=== PATIENT | male | born 1965 | race Caucasian/White ===

== ENCOUNTER 2018-12-14 19:12 | Inpatient (IN) | payer BC, OTHER ==
[2018-12-14 20:28] LABS: Absolute Lymphocytes (CBC) 2.6 K/uL (0.7-4.9); Basophils % 0.7 % (0-1.3); Hematocrit 41.4 % (39.6-49.0); MPV 9.4 fL (7.6-11.3); RBC Red Blood Cell Count 4.63 M/uL (4.33-5.43)
[2018-12-14] MEDS ORDERED: FENTANYL CITR 100 MCG/2 ML ONE (20:30)
[2018-12-14] MEDS ORDERED: NA CHLORIDE 0.9% 0 ML ONE (20:31)
[2018-12-14] MEDS ORDERED: NA CHLORIDE 0.9% 1,000 ML ONE (20:31)
[2018-12-14 20:43] LABS: BUN Blood Urea Nitrogen 15 mg/dL (7-18); Bicarbonate 31 mmol/L (21-32); Glucose Level 82 mg/dL (74-106); Sodium Level 141 mmol/L (136-145)
[2018-12-14] MEDS ORDERED: KETOROLAC 30 MG/ML INJ ONE (21:35)
[2018-12-14] MEDS ORDERED: VANCOMYCIN 1 GM/VIAL ONE (23:02)
[2018-12-14] MEDS ORDERED: NA CHLORIDE 0.9% 250 ML ONE (23:02)
[2018-12-14] MEDS ORDERED: PIPER/TAZO/NS 3.375gm 3.375 GM/100 ML BAG ONE (23:02)
--- NOTE | 2018-12-14 23:56 | ER ---
Nurse's Notes [facility] Name: Nick Aguilar Age: 53 yrs Sex: Male : 1965 Arrival Date: 12/14/2018 Time: 19:15 Bed 28 Private MD: Diagnosis: Other infective bursitis, elbow;Pain in right elbow Presentation: 12/14 19:21 Presenting complaint: Patient states: Diagnosed with bursitis to right elbow at [facility], states lanced by doctor and sent home with antibiotics; states pain is worse now, radiating to right hand. Transition of care: patient was not received from another setting of care. Onset of symptoms was December 14, 2018. Risk Assessment: Do you want to hurt yourself or someone else? Patient reports no desire to harm self or others. Initial Sepsis Screen: Does the patient meet any 2 criteria? No. Patient's initial sepsis screen is negative. Does the patient have a suspected source of infection? No. Patient's initial sepsis screen is negative. Care prior to arrival: None. 19:21 Method Of Arrival: Ambulatory 1 19:21 Acuity: BLAYNE 3 lp1 Historical: - Allergies: 19:27 No Known Allergies; lp1 - PMHx: 19:27 Hyperthyroidism; insomnia; Asthma; lp1 - PSHx: 19:27 Foot surgery; lp1 - Immunization history:: Adult Immunizations up to date. - Social history:: Smoking status: Patient uses tobacco products, chewing tobacco. - Ebola Screening: : No symptoms or risks identified at this time. Screenin:00 Abuse screen: Denies threats or abuse. Denies injuries from another. Nutritional wh screening: No deficits noted. Tuberculosis screening: No symptoms or risk factors identified. Fall Risk None identified. Assessment: 20:00 General: Appears in no apparent distress. uncomfortable, Behavior is calm, cooperative, wh appropriate for age. Pain: Complains of pain in Right Elbow Pain does not radiate. Pain currently is 10 out of 10 on a pain scale. Quality of pain is described as aching, Pain began 1 day ago. 20:00 Neuro: Level of Consciousness is awake, alert, obeys commands, Oriented to person, wh place, time, situation, Appropriate for age. Cardiovascular: Capillary refill < 3 seconds. Respiratory: Airway is patent Respiratory effort is even, unlabored, Respiratory pattern is regular, symmetrical. GI: Abdomen is flat, non-distended. : No signs and/or symptoms were reported regarding the genitourinary system. EENT: No signs and/or symptoms were reported regarding the EENT system. Derm: Skin is intact, is healthy with good turgor, Skin is pink, warm \T\ dry. normal, Redness on Right Elbow. Musculoskeletal: Range of motion: limited in right elbow. 21:25 Reassessment: Patient appears in no apparent distress at this time. No changes from previously documented assessment. Patient and/or family updated on plan of care and expected duration. Pain level reassessed. Patient is alert, oriented x 3, equal unlabored respirations, skin warm/dry/pink. 22:45 Reassessment: Patient appears in no apparent distress at this time. No changes from wh previously documented assessment. Patient and/or family updated on plan of care and expected duration. Pain level reassessed. Patient is alert, oriented x 3, equal unlabored respirations, skin warm/dry/pink. Patient states feeling better. 23:30 Reassessment: Patient appears in no apparent distress at this time. No changes from wh previously documented assessment. Patient and/or family updated on plan of care and expected duration. Pain level reassessed. Patient is alert, oriented x 3, equal unlabored respirations, skin warm/dry/pink. 12/15 00:30 Reassessment: Patient appears in no apparent distress at this time. No changes from wh previously documented assessment. Patient and/or family updated on plan of care and expected duration. Pain level reassessed. Patient is alert, oriented x 3, equal unlabored respirations, skin warm/dry/pink. Vital Signs: 12/14 19:25 BP 136 / 82; Pulse 83; Resp 18; Temp 97(O); Pulse Ox 100% on R/A; Weight 54.43 kg (R); lp1 Height 5 ft. 5 in. (165.10 cm); Pain 10/10; 21:00 BP 127 / 79; Pulse 75; Resp 18; Pulse Ox 99% on R/A; wh 22:30 BP 136 / 79; Pulse 82; Resp 18; Pulse Ox 100% on R/A; wh 23:30 BP 136 / 87; Pulse 71; Resp 16; Pulse Ox 100% on R/A; wh 12/15 00:30 BP 124 / 80; Pulse 66; Resp 16; Pulse Ox 99% on R/A; 12/14 19:25 Body Mass Index 19.97 (54.43 kg, 165.10 cm) lp1 ED Course: 12/14 19:15 Patient arrived in ED. cf2 19:23 Triage completed. lp1 19:23 Arm band placed on left wrist. lp1 19:28 Ciera Barrios is Primary Nurse. 19:34 Mason Urban PA is PHCP. cp 19:34 Erick Dawn MD is Attending Physician. cp 20:00 Patient has correct armband on for positive identification. Bed in low position. Call light in reach. Side rails up X 1. Pulse ox on. NIBP on. 20:10 Inserted saline lock: 20 gauge in left antecubital area, using aseptic technique. Blood wh collected. 20:49 XRAY Elbow RIGHT 3 view In Process Unspecified. EDMS 22:54 Elbow Right W Con In Process Unspecified. EDMS 23:53 Tejal Langford MD is Hospitalizing Provider. [facility] 12/15 01:34 No provider procedures requiring assistance completed. Patient admitted, IV remains in place. Administered Medications: 12/14 20:36 Drug: fentaNYL (PF) 25 mcg {Note: RASS0.} Route: IVP; Site: left antecubital; 21:33 Follow up: Response: No adverse reaction; Pain is decreased; RASS: Alert and Calm (0) 20:37 Drug: NS 0.9% 1000 ml Route: IV; Rate: 1 bolus; Site: left antecubital; 12/15 00:35 Follow up: Response: No adverse reaction; IV Status: Completed infusion 12/14 21:40 Drug: TORadol - Ketorolac 15 mg Route: IVP; Site: left antecubital; 22:47 Follow up: Response: No adverse reaction; Pain is decreased 23:05 Drug: Zosyn 3.375 grams Route: IVPB; Infused Over: 60 mins; Site: left antecubital; 12/15 00:35 Follow up: Response: No adverse reaction; IV Status: Completed infusion 00:01 Drug: vancoMYCIN 1 grams Route: IVPB; Infused Over: 2 hrs; Site: left antecubital; jd3 01:33 Follow up: Response: No adverse reaction; IV Status: Completed infusion 00:36 Drug: Motrin 600 mg Route: PO; 01:33 Follow up: Response: No adverse reaction Outcome: 12/14 23:54 Decision to Hospitalize by Provider. [facility] 12/15 01:35 Admitted to Med/surg accompanied by nurse, family with patient, via wheelchair, room wh 230, with chart, Report called to Jenna Carrizales RN Condition: good Instructed on the need for admit. 01:36 Patient left the ED. Signatures: Dispatcher [employer] EDMS Erick Dawn MD MD kdr Nidhi Shipley RN RN lp1 Mason Urban PA PA cp Habalo, Winsy Matti Nichols RN RN jd3 Bailey Leblanc cf2 Corrections: (The following items were deleted from the chart) 12/14 22:44 20:00 Pain: Complains of pain in Right Elbow Pain does not radiate. Pain currently is wh 10 out of 10 on a pain scale. Quality of pain is described as aching, Pain began 1 day ago. :45 22:43 Neuro: Level of Consciousness is awake, alert, obeys commands, Oriented to person, place, time, situation, Appropriate for age :45 22:43 Cardiovascular: Capillary refill < 3 seconds [facility] :45 22:43 Respiratory: Airway is patent Respiratory effort is even, unlabored, Respiratory wh pattern is regular, symmetrical, :45 22:43 GI: Abdomen is flat, non-distended, [facility] :45 22:43 : No signs and/or symptoms were reported regarding the genitourinary system. [facility] :45 22:43 EENT: No signs and/or symptoms were reported regarding the EENT system. [facility] :45 22:43 Derm: Skin is intact, is healthy with good turgor, Skin is pink, warm \T\ dry. wh normal, Redness on Right Elbow :45 22:43 Musculoskeletal: Range of motion: limited in right elbow [facility] 22:46 21:05 Reassessment: Patient appears in no apparent distress at this time. No changes from previously documented assessment. Patient is alert, oriented x 3, equal unlabored respirations, skin warm/dry/pink. wh
--- NOTE | 2018-12-14 23:57 | EDPHYS ---
Physician Documentation [facility] Name: Nick Aguilar Age: 53 yrs Sex: Male : 1965 Arrival Date: 12/14/2018 Time: 19:15 Bed 28 Private MD: ED Physician Erick Dawn HPI: 12/14 19:55 This 53 yrs old Male presents to ER via Ambulatory with complaints of elbow cp pain. 19:55 The patient or guardian complains of pain, that is acute, swelling, tenderness. The cp complaints affect the right elbow radiating to right forearm. Patient reports having right elbow bursa drained yesterday by DR Tsai \T[facility] with bursa packed. Patient was prescribed oral Doxycycline which he has been taking. Patient reports pain worse today and now radiating down arm. Historical: - Allergies: 19:27 No Known Allergies; lp1 - PMHx: 19:27 Hyperthyroidism; insomnia; Asthma; lp1 - PSHx: 19:27 Foot surgery; lp1 - Immunization history:: Adult Immunizations up to date. - Social history:: Smoking status: Patient uses tobacco products, chewing tobacco. - Ebola Screening: : No symptoms or risks identified at this time. ROS: 20:00 Constitutional: Negative for body aches, chills, fever, poor PO intake. cp 20:00 Neck: Negative for pain with movement, pain at rest, stiffness. cp 20:00 Cardiovascular: Negative for chest pain, palpitations. 20:00 Respiratory: Negative for cough, shortness of breath, wheezing. 20:00 Abdomen/GI: Negative for abdominal pain, nausea and vomiting, constipation. 20:00 Back: Negative for pain at rest, pain with movement. 20:00 MS/extremity: Positive for pain, swelling, tenderness, warmth, of the right elbow. 20:00 All other systems are negative. Exam: 20:10 Constitutional: The patient appears in no acute distress, alert, awake, cp non-diaphoretic, non-toxic, well developed, well nourished, uncomfortable. 20:10 Head/Face: Normocephalic, atraumatic. cp 20:10 Eyes: Periorbital structures: appear normal, Conjunctiva: normal, no exudate, no injection, Sclera: no appreciated abnormality, Lids and lashes: appear normal, bilaterally. 20:10 ENT: External ear(s): are unremarkable, Nose: is normal, Mouth: Lips: normal, moist, Oral mucosa: pink and intact, moist, Posterior pharynx: is normal, airway is patent, no erythema, no exudate. 20:10 Chest/axilla: Inspection: normal. 20:10 Cardiovascular: Rate: normal, Rhythm: regular. 20:10 Respiratory: the patient does not display signs of respiratory distress, Respirations: normal, no use of accessory muscles, no retractions, no splinting, no tachypnea, labored breathing, is not present, Breath sounds: are clear throughout, no decreased breath sounds, no stridor, no wheezing. 20:10 Abdomen/GI: Exam negative for discomfort, distension, guarding, Inspection: abdomen appears normal. 20:10 Skin: cellulitis, that is moderate, patchy, on the right elbow, noted open wound with packing in place posterior right elbow. Vital Signs: 19:25 BP 136 / 82; Pulse 83; Resp 18; Temp 97(O); Pulse Ox 100% on R/A; Weight 54.43 kg (R); lp1 Height 5 ft. 5 in. (165.10 cm); Pain 10/10; 21:00 BP 127 / 79; Pulse 75; Resp 18; Pulse Ox 99% on R/A; wh 22:30 BP 136 / 79; Pulse 82; Resp 18; Pulse Ox 100% on R/A; wh 23:30 BP 136 / 87; Pulse 71; Resp 16; Pulse Ox 100% on R/A; wh 12/15 00:30 BP 124 / 80; Pulse 66; Resp 16; Pulse Ox 99% on R/A; wh 12/14 19:25 Body Mass Index 19.97 (54.43 kg, 165.10 cm) lp1 MDM: 12/14 19:36 Patient medically screened. cp 22:05 Physician consultation: Tejal Langford MD was called at 22:05, was contacted at 22:05, cp regarding admission, to the medical/surgical unit. would like further tests performed, CT scan. 22:05 Data reviewed: vital signs, nurses notes, lab test result(s), radiologic studies, plain cp films. Test interpretation: by ED physician or midlevel provider: xrays of elbow negative for foreign body. Response to treatment: the patient's symptoms have markedly improved after treatment. 12/14 19:52 Order name: CBC with Diff; Complete Time: 21:10 12/14 19:52 Order name: BMP; Complete Time: 21:10 12/14 21:10 Interpretation: Normal except: CA 8.4. 12/14 19:52 Order name: Procalcitonin; Complete Time: 21:10 12/14 19:52 Order name: Lactate; Complete Time: 21:10 12/14 19:53 Order name: Blood Culture Adult (2) 12/14 20:30 Order name: XRAY Elbow RIGHT 3 view 12/14 19:52 Order name: IV; Complete Time: 20:10 12/14 22:29 Order name: Elbow Right W Con EDMS Administered Medications: 20:36 Drug: fentaNYL (PF) 25 mcg {Note: RASS0.} Route: IVP; Site: left antecubital; 21:33 Follow up: Response: No adverse reaction; Pain is decreased; RASS: Alert and Calm (0) 20:37 Drug: NS 0.9% 1000 ml Route: IV; Rate: 1 bolus; Site: left antecubital; 12/15 00:35 Follow up: Response: No adverse reaction; IV Status: Completed infusion 12/14 21:40 Drug: TORadol - Ketorolac 15 mg Route: IVP; Site: left antecubital; 22:47 Follow up: Response: No adverse reaction; Pain is decreased 23:05 Drug: Zosyn 3.375 grams Route: IVPB; Infused Over: 60 mins; Site: left antecubital; 12/15 00:35 Follow up: Response: No adverse reaction; IV Status: Completed infusion 00:01 Drug: vancoMYCIN 1 grams Route: IVPB; Infused Over: 2 hrs; Site: left antecubital; jd3 01:33 Follow up: Response: No adverse reaction; IV Status: Completed infusion 00:36 Drug: Motrin 600 mg Route: PO; 01:33 Follow up: Response: No adverse reaction Disposition: 12/14 23:52 Co-signature as Attending Physician, Erick Dawn MD I agree with the assessment and kdr plan of care. Disposition: 12/14/18 23:54 Hospitalization ordered by Tejal Langford for Observation. Preliminary diagnosis are Other infective bursitis, elbow, Pain in right elbow. - Bed requested for Telemetry/MedSurg (observation). - Status is Observation. - Condition is Fair. - Problem is new. - Symptoms have improved. UTI on Admission? No Signatures: Dispatcher [employer] EDMS Erick Dawn MD MD [facility] Nidhi Shipley RN RN lp1 Mason Urban PA PA cp Garcia, Cindy, RN RN Ciera Barrios Matti Nichols RN RN jd3 Corrections: (The following items were deleted from the chart) 21:10 21:10 Normal except. cp cp 23:55 23:54 Hospitalization Ordered by Tejal Langford MD for Observation. Preliminary [facility] diagnosis is Other infective bursitis, elbow. Bed requested for Telemetry/MedSurg (observation). Status is Observation. Condition is Fair. Problem is new. Symptoms have improved. UTI on Admission? No. kdr 12/15 00:17 12/14 23:55 12/14/2018 23:54 Hospitalization Ordered by Tejal Langford MD for cg Observation. Preliminary diagnosis is Other infective bursitis, elbow; Pain in right elbow. Bed requested for Telemetry/MedSurg (observation). Status is Observation. Condition is Fair. Problem is new. Symptoms have improved. UTI on Admission? No. [facility] 12/15 01:36 00:17 12/14/2018 23:54 Hospitalization Ordered by Tejal Langford MD for Observation. Preliminary diagnosis is Other infective bursitis, elbow; Pain in right elbow. Bed requested for Telemetry/MedSurg (observation). Status is Observation. Condition is Fair. Problem is new. Symptoms have improved. UTI on Admission? No.
[2018-12-14] MEDS ORDERED: ONDANSETRON 4 MG/2 ML VIAL IV PRN (23:59)
[2018-12-14] MEDS ORDERED: ACETAMINOPHEN 500 MG TAB PO PRN (23:59)
[2018-12-15] MEDS ORDERED: IBUPROFEN 200 MG TAB PO ONE (00:12)
[2018-12-15] MEDS ORDERED: IBUPROFEN 400 MG TAB ONE (00:12)
[2018-12-15 02:22] VITALS: BMI 20.2
[2018-12-15] MEDS: NA CHLORIDE 0.9% 1,000 ML IV SCH ×4 (02:27→19:45)
[2018-12-15] MEDS: Levofloxacin500mg IV 500 MG/100 ML BAG IV SCH (02:31)
[2018-12-15] MEDS ORDERED: VANCOMYCIN/NS 1 gm 1 GM/250 ML BAG IVPB SCH ×2 (04:30→17:00)
[2018-12-15 06:18] LABS: Protime INR 1.06
[2018-12-15 06:29] LABS: BUN Blood Urea Nitrogen 10 mg/dL (7-18); Bicarbonate 27 mmol/L (21-32); Glucose Level 92 mg/dL (74-106); Potassium 3.8 mmol/L (3.5-5.1); Sodium Level 145 mmol/L (136-145)
[2018-12-15 06:31] LABS: Absolute Lymphocytes (CBC) 2.8 K/uL (0.7-4.9); Basophils % 0.4 % (0-1.3); Hematocrit 33.6 % (39.6-49.0); MPV 9.6 fL (7.6-11.3); RBC Red Blood Cell Count 3.79 M/uL (4.33-5.43)
--- NOTE | 2018-12-15 07:36 | P.HP ---
Certification for Inpatient Patient admitted to: Inpatient With expected LOS: >2 Midnights Patient will require the following post-hospital care: None Practitioner: I am a practitioner with admitting privileges, knowledge of patient current condition, hospital course, and medical plan of care. Services: Services provided to patient in accordance with Admission requirements found in Title 42 Section 412.3 of the Code of Federal Regulations Patient History Date of Service: 12/15/18 Reason for admission: Cellulitis of the left elbow was concern for septic arthritis/bursitis History of Present Illness: Patient is a 53-year-old gentleman came into the hospital because he was having pain in his left arm. He had gone to see his primary care provider Dr. Darrel Person who did an incision and debridement of his left elbow in his office. He apparently had a lot of purulent drainage come out. He was sent home on oral antibiotics which he has not been improving from. He decided to come into the ER for further evaluation. In the ER there was concern for a septic joint. CT scan does not reveal any signs of a loculated fluid in the joint. No significant joint effusion noted. Patient will be admitted to the hospital for further evaluation. Allergies No Known Allergies Allergy (Unverified 12/14/18 22:11) Home Medications: NK [No Home Meds] 12/15/18 - Past Medical/Surgical History Has patient received pneumonia vaccine in the past: No Diabetic: No -: HYperthyroidism -: insomnia -: ashma -: internal fixator left foot and ankle - Family History Father Medical History: Heart disease - Social History Smoking Status: Never smoker Alcohol use: No CD- Drugs: No Caffeine use: No Place of Residence: Home Review of Systems 10-point ROS is otherwise unremarkable Physical Examination - Vital Signs Temperature: 97.2 F Blood Pressure: 122/68 Pulse: 61 Respirations: 18 Pulse Ox (%): 99 - Physical Exam General: Alert, In no apparent distress, Oriented x3 HEENT: Atraumatic, PERRLA, Mucous membr. moist/pink, EOMI, Sclerae nonicteric Neck: Supple, 2+ carotid pulse no bruit, No LAD, Without JVD or thyroid abnormality Respiratory: Clear to auscultation bilaterally, Normal air movement Cardiovascular: Regular rate/rhythm, Normal S1 S2, No murmurs Gastrointestinal: Normal bowel sounds, Soft and benign, Non-distended, No tenderness Musculoskeletal: Swelling, Erythema, Tenderness Integumentary: No rashes Neurological: Normal gait, Normal speech, Normal strength at 5/5 x4 extr, Normal tone, Sensation intact, Cranial nerves 3-12 intact, Normal affect Lymphatics: No axilla or inguinal lymphadenopathy - Studies Laboratory Data (last 24 hrs) 12/14/18 20:15: Sodium 141, Potassium 4.0, BUN 15, Creatinine 0.85, Glucose 82 12/14/18 20:15: WBC 10.2, Hgb 13.8, Hct 41.4, Plt Count 172 Assessment & Plan - Problems (Diagnosis) (1) Cellulitis of left upper extremity Current Visit: Yes Status: Acute - Plan 1. Continue with IV antibiotic 2. Continue with local wound care 3. Wound care consultation/surgical consultation 4. Gentle IV hydration 5. Monitor CBC 6. Strict blood sugar monitoring 7. Pain control 8. GI and DVT prophylaxis Discharge Plan: Home Plan to discharge in: 48 Hours - Advance Directives Does patient have a Living Will: Yes Does patient have a Durable POA for Healthcare: Yes - Code Status/Comfort Care Code Status Assessed: Yes Code Status: Full Code Critical Care: No Time Spent Managing PTS Care (In Minutes): 45
--- NOTE | 2018-12-15 07:57 | RAD REPORT ---
EXAM DESCRIPTION: RAD - Elbow Right 3 View - 12/14/2018 8:50 pm CLINICAL HISTORY: Right arm pain and numbness, recent drainage of posterior elbow bursitis COMPARISON: None. FINDINGS: No fracture is identified and no elevated posterior fat pad. There is no dislocation or pe riosteal reaction noted. No foreign body in the soft tissues. Soft tissue air is present posterior to the olecranon. This is not abnormal for the procedure performed. No other significant finding. IMPRESSION: No bone or joint abnormality. Small air collection at site of bursitis drainage. This is not unexpected.
[2018-12-15 09:49] LABS: Blood Morphology Comment NOT SEEN (NOT SEEN); Platelet Estimate ADEQ; Urine White Blood Cell Casts OK
--- NOTE | 2018-12-15 10:03 | RAD REPORT ---
EXAM DESCRIPTION: CT - Elbow Right W Con - 12/15/2018 3:17 am CLINICAL HISTORY: Pain COMPARISON: None. TECHNIQUE: CT ELBOW WITH IV CONTRAST on 12/14/2018 10:13 PM CDT This exam was performed according to our departmental dose-optimization program, which includes autom ated exposure control, adjustment of the mA and/or kV according to patient size and/or use of iterati ve reconstruction technique. There is small amount of subcutaneous air within the left antecubital fo ssa. FINDINGS: There are no acute osseous findings. No suspicious bony lesions. IMPRESSION: No DVT. No definite acute fracture. Electronically signed by: Maurizio Condon MD 12/14/2018 11:19 PM CDT Due to temporary technical issues with the PACS/Fluency reporting system, reports are being signed by the in house radiologist as a courtesy to ensure prompt reporting. The interpreting radiologist is f ully responsible for the content of the report.
[2018-12-15] MEDS: MORPHINE 4 MG/ML SYR IV PRN ×3 (10:16→21:30)
[2018-12-15] MEDS ORDERED: ALBUTEROL 2.5 MG/3 ML NEB SOL NEB PRN ×2 (10:26→15:00)
--- NOTE | 2018-12-15 11:51 | PN ---
Date of Progress Note: 12/15/2018 Subjective: Patient is seen and examined. Chart reviewed and case discussed with RN. The patient still complains of significant amount of pain. The patient has some swelling of his right elbow. Medications List: Reviewed. Physical Examination: Vital Signs: Temperature 97.4, respirations 20. O2 at 100% on room air. General: Awake, alert, oriented x3, in some mild distress due to pain. CV: S1, S2. Regular rate and rhythm. Peripheral pulses present. Respiratory: Moving air well bilaterally. No wheezing or stridor. No use of accessory muscles. Gastrointestinal: Abdomen is soft, nontender, nondistended. Positive bowel sounds. Extremities: No clubbing, cyanosis. The patient has edema of the right elbow. Neurologic: Nonfocal. Sensation intact to light touch. Strength is symmetric , bilateral upper and lower extremities. Skin: Right elbow erythema, tenderness to palpation. Warm to touch. No fluctuance. The patient also has incision site from previous lancing. No discharge. Laboratory Data: Sodium 145, potassium 3.8, chloride 112, CO2 of 27, BUN 10, creatinine 0.67, glucose 92, calcium 7.8. Procalcitonin less than 0.05. WBC 7.9, H and H 11.5 and 33.6, platelets 152, neutrophils 54%. Blood cultures and wound cultures are pending. Assessment And Plan: 1. A 53-year-old male with septic olecranon bursitis right elbow. We will continue with IV antibiotics. Follow up on cultures. Continue IV fluids. Dr. Alcantara with Orthopedics has been consulted. Patient may need debridement, failed outpatient treatment. The patient was on oral antibiotics at home. 2. Hyperthyroidism. Patient does not take any medications at home. 3. History of insomnia. 4. Intermittent asthma, will use albuterol p.r.n. 5. DVT prophylaxis. No chemical anticoagulation due to anticipated procedure. Plan: Discharge in the next 48 to 72 hours depending on clinical response and culture results. SHELLY Voice ID: [id number] Report ID: [id number] DENISSE
[2018-12-15] MEDS: VANCOMYCIN/NS 1 gm 1 GM/250 ML BAG IVPB SCH ×2 (12:05→22:04)
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
[2018-12-16] MEDS: Levofloxacin500mg IV 500 MG/100 ML BAG IV SCH ×2 (01:07→22:11)
[2018-12-16] MEDS: MORPHINE 4 MG/ML SYR IV PRN ×2 (04:48→08:52)
[2018-12-16] MEDS: NA CHLORIDE 0.9% 1,000 ML IV SCH ×4 (05:45→18:06)
[2018-12-16 05:54] LABS: Absolute Lymphocytes (CBC) 2.7 K/uL (0.7-4.9); Basophils % 0.6 % (0-1.3); Hematocrit 35.6 % (39.6-49.0); Lymphocytes % 33.1 % (15.3-44.8); MPV 9.5 fL (7.6-11.3); RBC Red Blood Cell Count 3.98 M/uL (4.33-5.43)
[2018-12-16 06:13] LABS: ALT/SGPT 25 U/L (12-78); AST/SGOT 17 U/L (15-37); Alkaline Phosphatase 92 U/L (45-117); BUN Blood Urea Nitrogen 11 mg/dL (7-18); Bicarbonate 28 mmol/L (21-32); Bilirubin Total 0.3 mg/dL (0.2-1.0); Glucose Level 94 mg/dL (74-106); Potassium 4.2 mmol/L (3.5-5.1); Protein, Total 6.1 g/dL (6.4-8.2); Sodium Level 144 mmol/L (136-145)
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
[2018-12-16] MEDS: VANCOMYCIN/NS 1 gm 1 GM/250 ML BAG IVPB SCH ×2 (11:21→22:11)
--- NOTE | 2018-12-16 11:42 | PN ---
Date of Progress Note: 12/16/2018 Subjective: Patient seen and examined. Chart reviewed and case discussed with RN, sister at the bedside. Treatment plan explained, all questions answered. The patient states his erythema is improved, remained afebrile overnight. Medications: List reviewed. Physical Examination: Vital Signs: Temperature 98.4, heart rate 74, blood pressure 124/73, respirations 18, O2 at 97% on room air. General: Awake, alert, oriented x3, not in any acute distress, slightly ill- appearing male. CV: S1, S2. Regular rate and rhythm. Peripheral pulses present. Respiratory: Moving air well bilaterally. No wheezing or stridor. Gastrointestinal: Abdomen is soft, nontender, nondistended. Positive bowel sounds. No guarding or rigidity. Extremities: No clubbing, cyanosis. The patient has mild edema of the right upper extremity. Neuro: Cranial nerves 2 through 12 intact grossly. No focal neurological deficit. Speech is normal. Sensation intact to light touch. Skin: Right elbow incision site clean, dry, intact from previous lancing. Slight erythema around the elbow with tenderness to palpation. Musculoskeletal : Full range of motion of the elbow. Does have some pain with extension. Laboratory Data: Sodium 144, potassium 4.2, chloride 109, CO2 of 28, BUN 11, creatinine 0.68, glucose 94, calcium 8.1. WBC 8.2, H and H 11.8 and 35.6, platelets 164, neutrophils 56%. Blood cultures, no growth to date. Wound culture from the right elbow still pending. Assessment And Plan: A 53-year-old male with: 1. Septic olecranon bursitis right elbow. Continue with IV antibiotics. Cultures are negative to date. Appreciate Dr. Alcantara's input. May need debridement. The patient failed outpatient treatment at home. 2. Right upper extremity cellulitis wound cultures negative to date. Continue IV antibiotics. 3. Hyperthyroidism, stable. We will check TSH level. 4. History of insomnia. 5. Intermittent asthma. We will continue albuterol p.r.n. 6. Deep venous thrombosis prophylaxis with SCDs. No chemical anticoagulation due to possible procedure. Plan: Continue IV antibiotics. Follow up on cultures, likely discharge in the next 24 to 48 hours depending on clinical response. SHELLY Voice ID: [id number] Report ID: [id number] MTDD
[2018-12-16] MEDS: HYDROCODONE/APAP 7.5/325 MG TAB PO PRN (16:14)
[2018-12-16] MEDS ORDERED: KETOROLAC 30 MG/ML INJ IV ONE (18:24)
[2018-12-17] MEDS: HYDROCODONE/APAP 7.5/325 MG TAB PO PRN ×2 (03:58→13:02)
[2018-12-17 05:46] LABS: Absolute Lymphocytes (CBC) 3.1 K/uL (0.7-4.9); Basophils % 0.5 % (0-1.3); Hematocrit 36.8 % (39.6-49.0); Lymphocytes % 45.9 % (15.3-44.8); MPV 9.5 fL (7.6-11.3); RBC Red Blood Cell Count 4.17 M/uL (4.33-5.43)
[2018-12-17] MEDS: NA CHLORIDE 0.9% 1,000 ML IV SCH ×3 (05:59→17:16)
[2018-12-17 06:06] LABS: ALT/SGPT 34 U/L (12-78); AST/SGOT 27 U/L (15-37); Albumin 3.1 g/dL (3.4-5.0); Alkaline Phosphatase 111 U/L (45-117); BUN Blood Urea Nitrogen 12 mg/dL (7-18); Bicarbonate 28 mmol/L (21-32); Bilirubin Total 0.3 mg/dL (0.2-1.0); Glucose Level 95 mg/dL (74-106); Potassium 4.3 mmol/L (3.5-5.1); Protein, Total 6.4 g/dL (6.4-8.2); Sodium Level 143 mmol/L (136-145)
[2018-12-17] MEDS: VANCOMYCIN/NS 1 gm 1 GM/250 ML BAG IVPB SCH ×2 (11:29→23:06)
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
--- NOTE | 2018-12-17 16:32 | PN ---
Date of Progress Note: 12/17/2018 Subjective: Patient is seen and examined. Chart reviewed and case discussed with RN and Dr. Alcantara. Patient yesterday was asking for more pain. I suspect pain seeking behavior in this patient. Treatment plan explained, all questions answered. Medications: List reviewed. Physical Examination: Vital Signs: Temperature 98.2, heart rate 65, blood pressure 119/72, respirations 20, O2 of 96% on room air. General: Awake, alert, oriented x3, not in any acute distress. CV: S1, S2. Regular rate and rhythm. Peripheral pulses present. Respiratory: Moving air well bilaterally. No wheezing or stridor. No use of accessory muscles. Gastrointestinal: Abdomen is soft, nontender, nondistended. Positive bowel sounds. No guarding or rigidity. Extremities: No clubbing, cyanosis, or edema. Neurologic: Cranial nerves 2 through 12 intact grossly. No focal neurological deficits. Sensation intact to light touch. Vascular: Radial pulses present bilaterally. Skin: Right upper extremity erythema with some warmth to touch. Minimal tenderness. Incision site clean, dry, intact. No drainage. Musculoskeletal: Patient's passive range of motion, able to extend elbow 0 degrees with minimal pain. Laboratory Data: Sodium 143, potassium 4.3, chloride 109, CO2 of 28, BUN 12, creatinine 0.79, glucose 95, calcium 8.4. Albumin 3.1. WBC 6.7, H and H 12.4 and 36.8, platelets 169, neutrophils 42%. Assessment: A 53-year-old male with: 1. Right olecranon bursitis with cellulitis. We will continue with IV antibiotics. Wound cultures are positive for methicillin-resistant Staphylococcus aureus. Patient has had methicillin-resistant Staphylococcus aureus infection previously and lost his distal phalanx of the right hand. We will obtain Infectious Disease consultation. Patient will likely need 2 weeks of IV antibiotics. We will obtain MRI of the elbow to rule out involvement of the joint per Dr. Alcantara's recommendation. 2. Failed outpatient treatment. Patient was on doxycycline. 3. Cellulitis of the right upper extremity. 4. Hyperthyroidism stable. 5. History of insomnia. 6. Intermittent asthma. We will continue albuterol p.r.n. 7. Deep venous thrombosis prophylaxis with SCDs. We will start on Lovenox. Plan: As above likely discharge in the next 24 to 48 hours once MRI is complete and IV antibiotics have been set up. SHELLY Voice ID: [id number] Report ID: [id number] DENISSE
[2018-12-17] MEDS: ENOXAPARIN 40 MG/0.4 ML SQ SCH (17:15)
[2018-12-18] MEDS: HYDROCODONE/APAP 7.5/325 MG TAB PO PRN ×3 (00:42→22:22)
[2018-12-18] MEDS: NA CHLORIDE 0.9% 1,000 ML IV SCH ×2 (01:20→14:40)
[2018-12-18] MEDS: Levofloxacin500mg IV 500 MG/100 ML BAG IV SCH (01:46)
[2018-12-18 06:38] LABS: Absolute Lymphocytes (CBC) 3.3 K/uL (0.7-4.9); Basophils % 0.5 % (0-1.3); Hematocrit 35.3 % (39.6-49.0); MPV 9.5 fL (7.6-11.3); RBC Red Blood Cell Count 4.03 M/uL (4.33-5.43)
[2018-12-18 07:01] LABS: ALT/SGPT 33 U/L (12-78); AST/SGOT 24 U/L (15-37); Albumin 3.1 g/dL (3.4-5.0); Alkaline Phosphatase 100 U/L (45-117); BUN Blood Urea Nitrogen 14 mg/dL (7-18); Bicarbonate 30 mmol/L (21-32); Bilirubin Total 0.3 mg/dL (0.2-1.0); Glucose Level 92 mg/dL (74-106); Potassium 4.2 mmol/L (3.5-5.1); Protein, Total 6.4 g/dL (6.4-8.2); Sodium Level 142 mmol/L (136-145)
[2018-12-18] MEDS ORDERED: SODIUM CHLORIDE 0.9% 10ML INJ IV PRN ×2 (08:00)
[2018-12-18] MEDS: SODIUM CHLORIDE 0.9% 10ML INJ IV SCH ×2 (09:00→21:06)
--- NOTE | 2018-12-18 11:20 | RAD REPORT ---
EXAM DESCRIPTION: MRI - Elbow Right Wo Cont - 12/18/2018 10:45 am CLINICAL HISTORY: right olecranon bursa infection, r/out elbow jointelbow pain COMPARISON: Right elbow films December 14, CT right elbow December 14 TECHNIQUE: Multiplanar imaging of the right elbow performed using T1 weighted, proton density, T2 fa t saturation and T2 stir sequencing. FINDINGS: Normal signal characteristics of the bony structures. The no elbow joint effusion seen. In the fatty tissues posterior to the olecranon edema signal is present. Small foci of air present from prior interventional procedure. There is no abscess or drainable fluid collection. The fatty tissues along the posterior aspect of the elbow joint are edematous. The olecranon bursa is seen as a very s mall structure with only a trace amount of fluid present. IMPRESSION: Air and a trace amount of fluid are present in the small defined margins of the olecrano n bursa. Edematous appearance to the fatty tissues posterior to the elbow joint with no other site of fluid or abscess. No bone or muscle abnormality. Note joint effusion or intra-articular abnormalities.
[2018-12-18] MEDS: VANCOMYCIN/NS 1 gm 1 GM/250 ML BAG IVPB SCH ×2 (12:00→22:16)
--- NOTE | 2018-12-18 17:06 | PN ---
Date of Progress Note: 12/18/2018 Subjective: Patient seen and examined. Chart reviewed and case discussed with RN. Patient states josse house bumped his elbow on the tray, is having some pain, otherwise doing well. Has already gone down for his MRI, report is pending. Patient received his PICC line last night. Medications: List reviewed. Physical Examination: Vital Signs: Temperature 97.4, heart rate 70, blood pressure 111/70, respirations 16, O2 99% on room air. General: Awake, alert, oriented x3. Some mild distress due to pain. CV: S1, S2. Regular rate and rhythm. Peripheral pulses present. Respiratory: Moving air well bilaterally. No wheezing or stridor. No use of accessory muscles. Gastrointestinal: Abdomen is soft, nontender, nondistended. Positive bowel sounds. No guarding or rigidity. Extremities: No clubbing, cyanosis, edema. Neurologic: Nonfocal. Sensation intact to light touch. Vascular: Peripheral pulses, radial pulses are present bilaterally. Skin: Patient has erythema of the right elbow. Incision site clean, dry, intact. Mild tenderness t o palpation. Warm to touch. Musculoskeletal: Decreased range of motion in right elbow, however, with passive range of motion. Josse house is able to extend his elbow completely. Does have some pain. Laboratory Data: Sodium 142, potassium 4.2, chloride 108, CO2 30, BUN 14, creatinine 0.72, glucose 9 2, calcium 8.4. WBC 7.1, H and H 12.5 and 35.3, platelets 175, neutrophils 43%. Wound cultures grow ing out MRSA. MRI of the elbow shows air and trace amount of fluid are present in the small defined margin of the olecranon bursa. Edematous appearance of the fatty tissues posterior to the elbow join t with no other site of fluid or abscess. No bone or muscle abnormality. No joint effusion or intra -articular abnormalities. Assessment And Plan: A 53-year-old male with; 1.Right olecranon bursitis with cellulitis. Continue IV antibiotics. Wound cultures positive for m ethicillin-resistant Staphylococcus aureus. MRI of the elbow does not show any joint involvement. Uziel house will discuss further with Dr. Alcantara. Infectious Disease consultation is pending. Patient has demetrice howe received his PICC line. He will need IV antibiotics for a minimum of 2 weeks. Outpatient treat ment with doxycycline. 2.Cellulitis, right upper extremity, improving. 3.Hyperthyroidism. Stable. 4.History of insomnia, stable. 5.Intermittent asthma. Continue albuterol p.r.n. 6.Deep venous thrombosis prophylaxis with sequential compression devices and Lovenox. Plan: Discharge to LTAC versus SNF for long-term IV antibiotics. Patient has been referred to [facility]. SHELLY Voice ID: [id number] Report ID: [id number]
[2018-12-18] MEDS: ENOXAPARIN 40 MG/0.4 ML SQ SCH (17:54)
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
--- NOTE | 2018-12-18 20:21 | P.PN ---
Date of Service: 12/18/18 (HOSP DAY#4) S: PATIENT COMFORTABLE THIS AFTERNOON; PAIN CHART 0,5,3,2,05/21. PATIENT HAS BEEN USING PAIN TABLETS APPROPRIATELY. O: VSS, AFEBRILE, PATIENT TOLERATES COMPLETE ACTIVE EXTENSION AND FLEXION OF THE RIGHT ELBOW. LESS SWELLING, TENDERNESS AND ERYTHEMIA OVER PRIOR I&D SITE NOW HEALED WITHOUT DRAINAGE. NV EXAM INTACT. A: NO SURGERY INDICATED. ID CONSULT TO DECIDE DURATION OF IV ABX. MRI has shown absence of any other site of fluid accumulation or abscess. There is no joint effusion or intra-articular abnormality noted. P: WILL CONTINUE TO FOLLOW PATIENTS PROGRESS WHILE HOSPITALIZED.
[2018-12-18 22:44] VITALS: O2SAT 96
[2018-12-19] MEDS: Levofloxacin500mg IV 500 MG/100 ML BAG IV SCH (00:05)
[2018-12-19] MEDS: NA CHLORIDE 0.9% 1,000 ML IV SCH (04:00)
[2018-12-19 06:05] LABS: ALT/SGPT 34 U/L (12-78); AST/SGOT 28 U/L (15-37); Albumin 3.1 g/dL (3.4-5.0); Alkaline Phosphatase 104 U/L (45-117); BUN Blood Urea Nitrogen 13 mg/dL (7-18); Bicarbonate 32 mmol/L (21-32); Bilirubin Total 0.3 mg/dL (0.2-1.0); Glucose Level 91 mg/dL (74-106); Potassium 4.6 mmol/L (3.5-5.1); Protein, Total 6.2 g/dL (6.4-8.2); Sodium Level 142 mmol/L (136-145)
[2018-12-19] MEDS: SODIUM CHLORIDE 0.9% 10ML INJ IV SCH (09:00)
[2018-12-19] MEDS: VANCOMYCIN/NS 1 gm 1 GM/250 ML BAG IVPB SCH (12:10)
[2018-12-19] MEDS: HYDROCODONE/APAP 7.5/325 MG TAB PO PRN (12:23)
--- NOTE | 2018-12-19 12:26 | RAD REPORT ---
EXAM DESCRIPTION: XR Chest Single View CLINICAL HISTORY: 53 years Male S/P PICC insertion TECHNIQUE: One view of the chest. COMPARISON: No prior exams provided for comparison. FINDINGS: Left-sided PICC line in place with its tip projecting over the distal SVC. The lungs are clear without focal consolidation, effusion, or pneumothorax. The cardiomediastinal s ilhouette and central pulmonary vasculature are normal. No acute osseous abnormalities. IMPRESSION: Left PICC line in good position. No acute cardiopulmonary abnormalities. Electronically signed by: Jemma Mijares MD 12/18/2018 1:29 AM CDT Due to temporary technical issues with the PACS/Fluency reporting system, reports are being signed by the in house radiologist as a courtesy to ensure prompt reporting. The interpreting radiologist is f ully responsible for the content of the report.
--- NOTE | 2018-12-19 12:59 | P.PN ---
Subjective Date of Service: 12/19/18 Chief Complaint: Cellulitis of the left elbow is concern for septic arthritis/ bursitis Patient seen and examined at bedside. No family at bedside. Chart reviewed and case discussed with nursing staff.. Reports improvement of pain in the elbow No other concerns or complaints this morning No acute events noted overnight Review of Systems 10-point ROS is otherwise unremarkable Physical Examination - Vital Signs Temperature: 97.7 F Blood Pressure: 109/63 Pulse: 59 Respirations: 16 Pulse Ox (%): 98 - Physical Exam General: Alert, In no apparent distress HEENT: Atraumatic, PERRLA, EOMI Neck: Supple, JVD not distended Respiratory: Clear to auscultation bilaterally, Normal air movement Cardiovascular: Regular rate/rhythm, Normal S1 S2 Gastrointestinal: Normal bowel sounds, No tenderness Musculoskeletal: No tenderness Integumentary: No rashes Neurological: Normal speech, Normal tone, Normal affect Lymphatics: No axilla or inguinal lymphadenopathy Assessment And Plan - Plan A 53-year-old male with: 1. Right olecranon bursitis with cellulitis. Continue IV antibiotics. Wound cultures positive for methicillin-resistant Staphylococcus aureus. MRI of the elbow does not show any joint involvement. We will discuss further with Dr. Alcantara. Infectious Disease consultation. Patient has already received his PICC line. He will need IV antibiotics for a minimum of 2 weeks. Outpatient treatment with doxycycline. 2. Cellulitis, right upper extremity, improving. 3. Hyperthyroidism. Stable. 4. History of insomnia, stable. 5. Intermittent asthma. Continue albuterol p.r.n. 6. Deep venous thrombosis prophylaxis with sequential compression devices and Lovenox. Plan: Discharge to LTAC versus SNF for long-term IV antibiotics. Patient has been referred to [facility].
[2018-12-19 17:23] VITALS: BP 134/85; TEMP 97.8
--- NOTE | 2018-12-20 08:50 | PN ---
Subjective: Patient is feeling better. Denies any headache, nausea, vomiting, chest pain, abdominal pain, constipation, or diarrhea. Objective: Vital Signs: Temperature 97, pulse 59, respirations 14, blood pressure 109/63. Extremities: Examination of right elbow shows decreased swelling and redness. No open wounds. Laboratory Data: WBC 7.1, hemoglobin 12.5, platelets are 175. Chemistry shows sodium 142, potassium 4.6, chloride 109, bicarb 32, BUN 13, creatinine 0.8, glucose 91. Assessment And Plan: Right elbow bursitis with methicillin-resistant Staphylococcus aureus infection . Start patient on Bactrim DS 1 tab p.o. b.i.d. for 2 weeks. Monitor CBC weekly and BMP weekly for platelets and kidney function. NF/MODL Voice ID: [id number] Report ID: [id number]
--- NOTE | 2018-12-20 17:54 | P.DS ---
Admission Date: 12/15/18 Discharge Date: 12/19/18 Disposition: ROUTINE DISCHARGE Discharge Condition: GOOD Reason for Admission: Cellulitis of the left elbow is concern for septic arthritis/bursitis Consultations: Orthopedic surgery Infectious disease Brief History of Present Illness: Patient is a 53-year-old gentleman came into the hospital because he was having pain in his left arm. He had gone to see his primary care provider Dr. Darrel Person who did an incision and debridement of his left elbow in his office. He apparently had a lot of purulent drainage come out. He was sent home on oral antibiotics which he has not been improving from. He decided to come into the ER for further evaluation. In the ER there was concern for a septic joint. CT scan does not reveal any signs of a loculated fluid in the joint. No significant joint effusion noted. Patient will be admitted to the hospital for further evaluation. Hospital Course: Patient was admitted with a right olecranon bursitis with cellulitis. He was started on IV antibiotics. He had prior wound cultures positive for methicillin -resistant Staphylococcus aureus. MRI of the upper did not show any joint involvement. Dr. Alcantara, orthopedics was consulted. Infectious disease was also consulted. Patient had a PICC line placed for IV antibiotics the minimum of 2 weeks. Patient was then referred for [facility] long-term acute care facility. He was denied for the long-term acute care facility setting as he did not meet criteria. Case was then discussed with infectious disease. He was cleared for discharge by infectious disease as well as orthopedics with oral Bactrim for 2 weeks.patient otherwise remained stable throughout the stay. His diagnoses/treatment plan was explained to him, all questions were answered and he verbalized understanding. He was then discharged home in a safe and stable manner on oral Bactrim for 2 weeks. He was asked to follow up with is primary care physician in 2 days and orthopedic surgery in 2 weeks. See progress note dated on the Date for physical exam. Vital Signs/Physical Exam: Temp Pulse Resp BP Pulse Ox 97.8 F 72 20 134/85 97 12/19/18 16:00 12/19/18 16:00 12/19/18 16:00 12/19/18 16:00 12/19/18 16:00 Laboratory Data at Discharge: WBC 7.1 K/uL (4.3-10.9) 12/18/18 06:00 Hgb 12.5 g/dL (13.6-17.9) L 12/18/18 06:00 Hct 35.3 % (39.6-49.0) L 12/18/18 06:00 Plt Count 175 K/uL (152-406) 12/18/18 06:00 PT 12.5 SECONDS (9.5-12.5) 12/15/18 05:52 INR 1.06 12/15/18 05:52 APTT 29.4 SECONDS (24.3-36.9) 12/15/18 05:52 Sodium 142 mmol/L (136-145) 12/19/18 05:23 Potassium 4.6 mmol/L (3.5-5.1) 12/19/18 05:23 BUN 13 mg/dL (7-18) 12/19/18 05:23 Creatinine 0.81 mg/dL (0.55-1.3) 12/19/18 05:23 Glucose 91 mg/dL (74-106) 12/19/18 05:23 Total Bilirubin 0.3 mg/dL (0.2-1.0) 12/19/18 05:23 AST 28 U/L (15-37) 12/19/18 05:23 ALT 34 U/L (12-78) 12/19/18 05:23 Alkaline Phosphatase 104 U/L (45-117) 12/19/18 05:23 Home Medications: Sulfamethoxazole/Trimethoprim [Bactrim Ds Tablet] 1 each PO BID #28 tablet 12/19 New Medications: Sulfamethoxazole/Trimethoprim [Bactrim Ds Tablet] 1 each PO BID #28 tablet Patient Discharge Instructions: Please follow up with your Primary care physicain in 2-3 days. Please follow up with Dr. Alcantara in 2 weeks. Please return to the ER for worsening symptoms. Diet: Regular Activity: Ad keith Followup: Giovanni Alcantara MD [ACTIVE - CAN ADMIT] - 1-2 Weeks Darrel Person MD [Primary Care Provider] - 2-3 Days Time spent managing pt's care (in minutes): 55
== END 2018-12-19 19:10 | disposition home or self-care (01) | DRG 558 ==
LOC: ER 19:12 → ERHOLD 12-15 → 2ND 12-15 01:01
PROVIDERS: ADMIT Hospitalist; ATTEND Hospitalist
PROC: 02HV33Z Insertion of Infusion Device into Superior Vena Cava, Percutaneous Approach (ICD-10-PCS; principal; 2018-12-18)
DX: M71.121 Other infective bursitis, right elbow (principal); B95.62 Methicillin resistant Staphylococcus aureus infection as the cause of diseases classified elsewhere; E05.90 Thyrotoxicosis, unspecified without thyrotoxic crisis or storm; J45.20 Mild intermittent asthma, uncomplicated
CPT/HCPCS: 36415; 71045; 73201; 80048; 80053; 80202; 83605; 84145; 85025; 85610; 85730; 87040; 87070; 87077; 87186; 87205; 96361; 96365; 96368; 96375; 99285; J1650; J2543; J3010; J3370; J7030; Q9967